=== PATIENT | female | born 1965 | race Caucasian/White ===

== ENCOUNTER 2017-01-09 16:36 | Emergency (ER) | payer SELFPAY ==
[~2017-01-09] VITALS: Ht 172.7 cm; Wt 68.4 kg
[2017-01-09 17:36] LABS: BLOOD UREA NITROGEN 22 mg/dL (7-18)
[2017-01-09 17:54] LABS: HCG UR OBC PASS
[2017-01-09 18:00] LABS: ASPARTATE AMINO TRANSFERASE 17 U/L (15-37)
[2017-01-09] MEDS ORDERED: SULFAMETH./TRIMETHOPRIM DS 800MG/160MG TABLET ONE (18:53)
[2017-01-09] MEDS ORDERED: SULFAMETH./TRIMETHOPRIM DS 800MG/160MG TABLET PO ONE (19:00)
[2017-01-09] MEDS ORDERED: CEFDINIR 300 MG CAPSULE PO SCH (19:00)
[2017-01-09 19:45] VITALS: BP 117/95
== END 2017-01-09 19:47 | disposition home or self-care (01) ==
LOC: ED 19:35
DX: N30.01 Acute cystitis with hematuria (principal); I10 Essential (primary) hypertension
CPT/HCPCS: 36415; 80048; 80076; 81001; 81025; 82040; 82550; 85025; 87077; 87086; 87186; 93005; 99285

== ENCOUNTER 2020-01-01 19:30 | Emergency (ER) | payer SELFPAY ==
[~2020-01-01] VITALS: Ht 172.7 cm; Wt 70.0 kg
[2020-01-01 19:40] VITALS: BP 182/93
[2020-01-01 20:26] LABS: MICROSCOPIC INDICATED
== END 2020-01-01 21:21 | disposition home or self-care (01) ==
LOC: ED 21:00
DX: N30.01 Acute cystitis with hematuria (principal); F17.200 Nicotine dependence, unspecified, uncomplicated; I10 Essential (primary) hypertension
CPT/HCPCS: 81001; 87086; 99283